=== PATIENT | female | born 1970 | race Caucasian/White ===

== ENCOUNTER → 2016-07-10 | Outpatient (CLI) | payer OTHER ==
--- NOTE | 2016-07-10 16:32 | REP ---
LEFT ANKLE, FIVE VIEWS: HISTORY: Pain. There is no acute fracture or dislocation. The joint space is normal in appearance. An ossified density is present superior to the navicular bone. This may represent ligamentous or tendon calcification. IMPRESSION:There is no acute fracture or dislocation.
== END ==
LOC: M CLY 15:16
PROVIDERS: ATTEND Physician Assistant
DX: M25.572 Pain in left ankle and joints of left foot (principal)
CPT/HCPCS: 73610; G0463

== ENCOUNTER → 2016-11-15 | Outpatient (REF) | payer OTHER ==
[2016-11-15 12:22] LABS: BASO % 0.5 % (0.0-1.0); EOS # 0.2 K/mm3 (0.0-0.50); EOS % 5.2 % (0.0-3.0); LARGE UNSTAINED CELL # 0.1 K/mm3 (0.0-0.4); LARGE UNSTAINED CELL % 2.7 % (0.0-4.0); LYMPH # 0.8 K/mm3 (1.5-4.5); LYMPH % 14.6 % (24.0-44.0); MEAN CORPUSCULAR HEMOGLOBIN 26.2 pg (27.0-33.0); MEAN CORPUSCULAR HGB CONC 31.8 g/dl (32.0-36.5); MEAN CORPUSCULAR VOLUME 82.4 fl (80.0-96.0); MONO # 0.4 K/mm3 (0.0-0.8); MONO % 8.2 % (0.0-5.0); NEUTROPHILS # 3.1 K/mm3 (1.8-7.7); NEUTROPHILS % 68.9 % (36.0-66.0); PLATELET COUNT, AUTOMATED 249 k/mm3 (150-450); RED CELL DISTRIBUTION WIDTH 16.6 % (11.5-14.5); WHITE BLOOD COUNT 4.4 K/mm3 (4.0-10.0)
[2016-11-15 12:58] LABS: ALBUMIN 3.5 GM/DL (3.2-5.2); ALBUMIN/GLOBULIN RATIO 1.03 (1.00-1.93); ALKALINE PHOSPHATASE 70 U/L (45-117); ALT/SGPT 21 U/L (12-78); ANION GAP 10 MEQ/L (8-16); AST/SGOT 13 U/L (15-37); BILIRUBIN,TOTAL 0.2 MG/DL (0.2-1.0); BLOOD UREA NITROGEN 20 MG/DL (7-18); CALCIUM LEVEL 8.5 MG/DL (8.5-10.1); CARBON DIOXIDE LEVEL 22 MEQ/L (21-32); CHLORIDE LEVEL 113 MEQ/L (98-107); CHOLESTEROL LEVEL 186 MG/DL (<200); CREATININE FOR GFR 0.92 MG/DL (0.55-1.02); FREE T4 1.19 NG/DL (0.76-1.46); GLOMERULAR FILTRATION RATE > 60.0 (>58); GLUCOSE, FASTING 92 MG/DL (70-105); SODIUM LEVEL 145 MEQ/L (136-145); TOTAL PROTEIN 6.9 GM/DL (6.4-8.2); TRIGLYCERIDES LEVEL 82 MG/DL (<150)
== END ==
LOC: M SFHCCLAY 07:10
PROVIDERS: ATTEND Physician Assistant
DX: E07.9 Disorder of thyroid, unspecified (principal)

== ENCOUNTER → 2016-11-21 | Outpatient (CLI) | payer OTHER ==
--- NOTE | 2016-11-21 15:58 | REP ---
LEFT KNEE SERIES: Five views of the left knee performed and demonstrate no fracture or dislocation. There is slight lateral patellofemoral joint space narrowing. No definite effusion is seen. Study otherwise appears unremarkable. IMPRESSION: There appears to be mild lateral patellofemoral compartment narrowing.
== END ==
LOC: M CLY 15:12
PROVIDERS: ATTEND Physician Assistant
DX: M22.8X2 Other disorders of patella, left knee (principal); M25.562 Pain in left knee
CPT/HCPCS: 73564; G0463

== ENCOUNTER → 2018-08-27 | Outpatient (REF) | payer OTHER ==
[2018-08-27 16:54] LABS: BASO % 0.6 % (0.0-1.0); EOS # 0.2 10^3/uL (0.0-0.50); EOS % 3.7 % (0.0-3.0); HEMATOCRIT 42.1 % (36.0-47.0); HEMOGLOBIN 13.7 g/dl (12.0-15.5); LYMPH # 1.5 10^3/uL (1.5-4.5); LYMPH % 24.8 % (24.0-44.0); MEAN CORPUSCULAR HEMOGLOBIN 29.6 pg (27.0-33.0); MEAN CORPUSCULAR HGB CONC 32.5 g/dl (32.0-36.5); MEAN CORPUSCULAR VOLUME 90.9 fl (80.0-96.0); MONO # 0.6 10^3/uL (0.0-0.8); MONO % 10.4 % (0.0-5.0); NEUTROPHILS # 3.7 10^3/uL (1.8-7.7); NEUTROPHILS % 60.3 % (36.0-66.0); PLATELET COUNT, AUTOMATED 255 10^3/uL (150-450); RED BLOOD COUNT 4.63 10^6/uL (4.00-5.40); WHITE BLOOD COUNT 6.2 10^3/uL (4.0-10.0)
[2018-08-27 18:23] LABS: ALBUMIN 3.5 GM/DL (3.2-5.2); ALT/SGPT 27 U/L (12-78); BILIRUBIN,TOTAL 0.3 MG/DL (0.2-1.0); BLOOD UREA NITROGEN 26 MG/DL (7-18); CALCIUM LEVEL 8.9 MG/DL (8.5-10.1); CARBON DIOXIDE LEVEL 25 MEQ/L (21-32); CHLORIDE LEVEL 110 MEQ/L (98-107); CHOLESTEROL LEVEL 214 MG/DL (<200); CHOLESTEROL RISK RATIO 2.098 (<5); CREATININE FOR GFR 0.93 MG/DL (0.55-1.30); FREE T4 1.04 NG/DL (0.76-1.46); GLOMERULAR FILTRATION RATE > 60.0 (>58); GLUCOSE, FASTING 91 MG/DL (70-100); HDL CHOLESTEROL 102 MG/DL (>40); LDL CHOLESTEROL 99 MG/DL (<100); NON-HDL-C 112 MG/DL; POTASSIUM SERUM 4.1 MEQ/L (3.5-5.1); SODIUM LEVEL 141 MEQ/L (136-145); TOTAL PROTEIN 7.4 GM/DL (6.4-8.2); TRIGLYCERIDES LEVEL 63 MG/DL (<150)
[2018-08-27 18:24] LABS: HEMOGLOBIN A1c 5.5 %
[2018-08-27 18:29] LABS: TOTAL 25(OH) VITAMIN D 39.4 NG/ML (30.0-100.0)
== END ==
LOC: M SFHCCLAY 09:53
PROVIDERS: ATTEND Physician Assistant
DX: R73.09 Other abnormal glucose (principal); E07.9 Disorder of thyroid, unspecified; M54.2 Cervicalgia; E55.9 Vitamin D deficiency, unspecified

== ENCOUNTER 2018-11-13 09:48 | Day surgery (SDC) | payer OTHER ==
[~2018-11-13] VITALS: Ht 160 cm; Wt 106.0 kg
[~2018-11-13 09:48] MED LIST: ACET-897 PO; BIOT2500 PO; ESTR1TAB PO; KP F1200 PO; LAMO200T2 PO; LORA-674 PO; LOTE0.5S OU; MAGN400C PO; METH1TAB40 PO; MONT10TA2 PO; NS 1,000 ML IV ONE; PAZE1DRO OU; RANI150T14 PO; REST0.05 OS; SUMA100T2 PO; TOPI100T9 PO; TRAM50TA2 PO; TRAZ-252 PO; VENTAER INH; VITA500C24 PO; VITA50TA43 PO; VITA50TA47 PO; VYVA70CA3 PO; [UNRECOGNIZED DRUG - CODE] PO
[2018-11-13] MEDS ORDERED: PROPOFOL 200 MG/20 ML VIAL As Ordered ONE ×3 (10:35→11:44)
[2018-11-13] MEDS ORDERED: LIDOCAINE 2% INJ 100 MG/5 ML SDV (FOR ANES.) As Ordered ONE (10:35)
[2018-11-13] MEDS ORDERED: fentaNYL 100 MCG/2 ML INJECTION (J3010) As Ordered ONE (10:35)
--- NOTE | 2018-11-13 12:05 | ROOR ---
Patient Name: Meagan Cottrell Procedure Date: 11/13/2018 11:12 AM Date of : 1970 Age: 48 Room: [facility] Gender: Female Note Status: Finalized Procedure: Upper GI endoscopy Indications: Heartburn, Suspected gastro-esophageal reflux disease Providers: Alexander Bro MD Referring MD: PEGGY Bain pa-c Requesting Provider: Medicines: Monitored Anesthesia Care Complications: No immediate complications. Procedure: Pre-Anesthesia Assessment: - Prior to the procedure, a History and Physical was performed, and patient medications and allergies were reviewed. The patient is competent. The risks and benefits of the procedure and the sedation options and risks were discussed with the patient. All questions were answered and informed consent was obtained. Patient identification and proposed procedure were verified by the physician, the nurse and the anesthesiologist in the procedure room. Mental Status Examination: alert and oriented. Airway Examination: normal oropharyngeal airway and neck mobility. Respiratory Examination: clear to auscultation. CV Examination: normal. Prophylactic Antibiotics: The patient does not require prophylactic antibiotics. Prior Anticoagulants: The patient has taken no previous anticoagulant or antiplatelet agents. ASA Grade Assessment: II - A patient with mild systemic disease. After reviewing the risks and benefits, the patient was deemed in satisfactory condition to undergo the procedure. The anesthesia plan was to use monitored anesthesia care (MAC). Immediately prior to administration of medications, the patient was re-assessed for adequacy to receive sedatives. The heart rate, respiratory rate, oxygen saturations, blood pressure, adequacy of pulmonary ventilation, and response to care were monitored throughout the procedure. The physical status of the patient was re-assessed after the procedure. The Endoscope was introduced through the mouth, and advanced to the second part of duodenum. The upper GI endoscopy was accomplished without difficulty. The patient tolerated the procedure well. Findings: Mucosal changes including ringed esophagus and longitudinal furrows were found in the lower third of the esophagus. Biopsies were obtained from the proximal and distal esophagus with cold forceps for histology of suspected eosinophilic esophagitis. Verification of patient identification for the specimen was done by the physician and nurse using the patient's name, date and medical record number. Estimated blood loss was minimal. The Z-line was regular and was found 38 cm from the incisors. The HILL capsule with delivery system was introduced through the mouth and advanced into the esophagus, such that the HILL pH capsule was positioned 32 cm from the incisors, which was 6 cm proximal to the GE junction. Suction was applied to the well of the HILL pH capsule to suck in the adjacent mucosa of the esophagus using the external vacuum pump set at a minimum vacuum pressure of 550 mmHg for 30 seconds. The HILL pH capsule was then deployed by depressing the plunger on top of the handle to advance the locking pin into the mucosa, thereby attaching the capsule to the esophagus. The plunger was then rotated a quarter turn clockwise to release the capsule from the delivery system. The delivery system was then withdrawn. Endoscopy was utilized for probe placement and diagnostic evaluation. The scope was reinserted to evaluate placement of the HILL capsule. Visualization showed the HILL capsule to be in an appropriate position. Scattered mild inflammation characterized by erythema and granularity was found in the gastric antrum. Biopsies were taken with a cold forceps for Helicobacter pylori testing. Scattered mild inflammation characterized by erythema and granularity was found in the duodenal bulb and in the second portion of the duodenum. Biopsies for histology were taken with a cold forceps for evaluation of celiac disease. Impression: - Esophageal mucosal changes suspicious for eosinophilic esophagitis. Biopsied. - Z-line regular, 38 cm from the incisors. - Gastritis. Biopsied. - Duodenitis. Biopsied. - The HILL pH capsule was positioned 32 cm from the incisors, which was 6 cm proximal to the GE junction. Recommendation: - Patient has a contact number available for emergencies. The signs and symptoms of potential delayed complications were discussed with the patient. Return to normal activities tomorrow. Written discharge instructions were provided to the patient. - Resume previous diet. - Continue present medications. - Await pathology results. - Follow an antireflux regimen. - Telephone GI clinic for pathology results in 2 weeks. - Return to primary care physician. Alexander Bro MD Alexander Bro MD 11/13/2018 12:05:03 PM Electronically signed by Alexander Bro MD Number of Addenda: 0 Note Initiated On: 11/13/2018 11:12 AM Estimated Blood Loss: Estimated blood loss was minimal.
--- NOTE | 2018-11-13 12:10 | ROOR ---
Patient Name: Meagan Cottrell Procedure Date: 11/13/2018 11:25 AM Date of : 1970 Age: 48 Room: [facility] Gender: Female Note Status: Finalized Procedure: Colonoscopy Indications: Screening for colorectal malignant neoplasm Providers: Alexander Bro MD Referring MD: PEGGY Bain pa-c Requesting Provider: Medicines: Monitored Anesthesia Care Complications: No immediate complications. Procedure: Pre-Anesthesia Assessment: - Prior to the procedure, a History and Physical was performed, and patient medications and allergies were reviewed. The patient is competent. The risks and benefits of the procedure and the sedation options and risks were discussed with the patient. All questions were answered and informed consent was obtained. Patient identification and proposed procedure were verified by the physician, the nurse and the anesthesiologist in the procedure room. Mental Status Examination: alert and oriented. Airway Examination: normal oropharyngeal airway and neck mobility. Respiratory Examination: clear to auscultation. CV Examination: normal. Prophylactic Antibiotics: The patient does not require prophylactic antibiotics. Prior Anticoagulants: The patient has taken no previous anticoagulant or antiplatelet agents. ASA Grade Assessment: II - A patient with mild systemic disease. After reviewing the risks and benefits, the patient was deemed in satisfactory condition to undergo the procedure. The anesthesia plan was to use monitored anesthesia care (MAC). Immediately prior to administration of medications, the patient was re-assessed for adequacy to receive sedatives. The heart rate, respiratory rate, oxygen saturations, blood pressure, adequacy of pulmonary ventilation, and response to care were monitored throughout the procedure. The physical status of the patient was re-assessed after the procedure. The Colonoscope was introduced through the anus and advanced to the terminal ileum, with identification of the appendiceal orifice and IC valve. The colonoscopy was performed without difficulty. The patient tolerated the procedure well. The quality of the bowel preparation was good. The terminal ileum, ileocecal valve, appendiceal orifice, and rectum were photographed. Scope insertion time was 4 minutes. Scope withdrawal time was 10 minutes. The total duration of the procedure was 14 minutes. Findings: The perianal and digital rectal examinations were normal. The terminal ileum appeared normal. A 15 mm polyp was found in the cecum. The polyp was sessile. The polyp was removed with a hot snare. Resection and retrieval were complete. To close a defect after polypectomy, two hemostatic clips were successfully placed. There was no bleeding at the end of the procedure. Verification of patient identification for the specimen was done by the physician and nurse using the patient's name, date and medical record number. Estimated blood loss was minimal. A 12 mm polyp was found in the ascending colon. The polyp was sessile. The polyp was removed with a hot snare. Resection and retrieval were complete. To close a defect after polypectomy, one hemostatic clip was successfully placed. There was no bleeding at the end of the procedure. A 10 mm polyp was found in the transverse colon. The polyp was sessile. The polyp was removed with a hot snare. Resection and retrieval were complete. External hemorrhoids were found during retroflexion. The hemorrhoids were small. Impression: - The examined portion of the ileum was normal. - One 15 mm polyp in the cecum, removed with a hot snare. Resected and retrieved. Clips were placed. - One 12 mm polyp in the ascending colon, removed with a hot snare. Resected and retrieved. Clip was placed. - One 10 mm polyp in the transverse colon, removed with a hot snare. Resected and retrieved. - External hemorrhoids. Recommendation: - Patient has a contact number available for emergencies. The signs and symptoms of potential delayed complications were discussed with the patient. Return to normal activities tomorrow. Written discharge instructions were provided to the patient. - Advance diet as tolerated. - Continue present medications. - Await pathology results. - Repeat colonoscopy in 3 years for surveillance based on pathology results. - Telephone GI clinic for pathology results in 2 weeks. - Return to primary care physician. Alexander Bro MD Alexander Bro MD 11/13/2018 12:10:01 PM Electronically signed by Alexander Bro MD Number of Addenda: 0 Note Initiated On: 11/13/2018 11:25 AM Estimated Blood Loss: Estimated blood loss was minimal.
[2018-11-13 12:36] VITALS: BP 131/82
== END 2018-11-13 12:54 | disposition home or self-care (01) ==
LOC: M OPP 09:48
PROVIDERS: ATTEND Internal Medicine Gastroenterology
DX: Z12.11 Encounter for screening for malignant neoplasm of colon (principal); D12.0 Benign neoplasm of cecum; D12.2 Benign neoplasm of ascending colon; D12.3 Benign neoplasm of transverse colon; K64.8 Other hemorrhoids; R12 Heartburn; K29.70 Gastritis, unspecified, without bleeding; K29.80 Duodenitis without bleeding; K22.8 Other specified diseases of esophagus; E05.90 Thyrotoxicosis, unspecified without thyrotoxic crisis or storm; K57.32 Diverticulitis of large intestine without perforation or abscess without bleeding; K58.9 Irritable bowel syndrome, unspecified; D64.9 Anemia, unspecified; M19.90 Unspecified osteoarthritis, unspecified site; M54.89 Other dorsalgia; L30.9 Dermatitis, unspecified; R42 Dizziness and giddiness; G43.909 Migraine, unspecified, not intractable, without status migrainosus; J45.909 Unspecified asthma, uncomplicated; N39.3 Stress incontinence (female) (male); M72.2 Plantar fascial fibromatosis; Z88.8 Allergy status to other drugs, medicaments and biological substances; Z79.899 Other long term (current) drug therapy
CPT/HCPCS: 43239; 45385; 88305; 91035; J3010

== ENCOUNTER → 2019-04-13 | Outpatient (REF) | payer OTHER ==
[~2019-04-13] MED LIST changes: -LAMO200T2 PO; +LAMO200T3 PO; -MONT10TA2 PO; +MONT10TA4 PO; -NS 1,000 ML IV ONE; +PERC5TAB12 PO
[2019-04-13 16:29] LABS: BASO % 0.5 % (0.0-1.0); EOS # 0.3 10^3/uL (0.0-0.5); EOS % 4.6 % (0.0-3.0); HEMATOCRIT 44.8 % (36.0-47.0); LYMPH # 1.5 10^3/uL (1.5-5.0); MEAN CORPUSCULAR HEMOGLOBIN 28.9 pg (27.0-33.0); MEAN CORPUSCULAR HGB CONC 31.3 g/dl (32.0-36.5); MEAN CORPUSCULAR VOLUME 92.6 fl (80.0-96.0); MONO # 0.5 10^3/uL (0.0-0.8); MONO % 8.4 % (0.0-5.0); NEUTROPHILS # 3.2 10^3/uL (1.5-8.5); NEUTROPHILS % 58.1 % (36.0-66.0); PLATELET COUNT, AUTOMATED 242 10^3/uL (150-450); RED BLOOD COUNT 4.84 10^6/uL (4.00-5.40); WHITE BLOOD COUNT 5.5 10^3/uL (4.0-10.0)
[2019-04-13 16:44] LABS: ALBUMIN 3.7 GM/DL (3.2-5.2); ALT/SGPT 26 U/L (12-78); BILIRUBIN,TOTAL 0.2 MG/DL (0.2-1.0); BLOOD UREA NITROGEN 26 MG/DL (7-18); CALCIUM LEVEL 8.8 MG/DL (8.5-10.1); CARBON DIOXIDE LEVEL 24 MEQ/L (21-32); CHLORIDE LEVEL 111 MEQ/L (98-107); CHOLESTEROL LEVEL 235 MG/DL (<200); CHOLESTEROL RISK RATIO 2.611 (<5); CREATININE FOR GFR 1.03 MG/DL (0.55-1.30); FREE T4 0.93 NG/DL (0.76-1.46); GLOMERULAR FILTRATION RATE > 60.0 (>51); GLUCOSE, FASTING 90 MG/DL (70-100); HDL CHOLESTEROL 90 MG/DL (>40); LDL CHOLESTEROL 124 MG/DL (<100); NON-HDL-C 145 MG/DL; POTASSIUM SERUM 4.1 MEQ/L (3.5-5.1); SODIUM LEVEL 141 MEQ/L (136-145); TOTAL PROTEIN 7.1 GM/DL (6.4-8.2); TRIGLYCERIDES LEVEL 104 MG/DL (<150)
[2019-04-13 17:04] LABS: TOTAL 25(OH) VITAMIN D 37.4 NG/ML (30.0-100.0)
[2019-04-13 17:14] LABS: HEMOGLOBIN A1c 5.5 %
== END ==
LOC: M SFHCCAPE 10:36
PROVIDERS: ATTEND Physician Assistant
DX: E07.9 Disorder of thyroid, unspecified (principal); R73.09 Other abnormal glucose; E55.9 Vitamin D deficiency, unspecified

== ENCOUNTER 2019-05-20 19:16 | Emergency (ER) | payer OTHER ==
[~2019-05-20] VITALS: Ht 160 cm; Wt 102.3 kg
[~2019-05-20 19:16] MED LIST changes: -PERC5TAB12 PO
[2019-05-20] MEDS ORDERED: traMADol 50 MG TAB PO ONE (21:00)
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
[2019-05-20] MEDS ORDERED: PERCOCET 5MG/325MG TAB PO ONE (22:00)
[2019-05-20] MEDS ORDERED: PERC5TAB12 PO (22:02)
[2019-05-20 22:09] VITALS: BP 138/72
== END 2019-05-20 22:26 | disposition home or self-care (01) ==
LOC: M ED 19:16
DX: S39.012A Strain of muscle, fascia and tendon of lower back, initial encounter (principal); S16.1XXA Strain of muscle, fascia and tendon at neck level, initial encounter; S20.219A Contusion of unspecified front wall of thorax, initial encounter; V43.52XA Car driver injured in collision with other type car in traffic accident, initial encounter; Y92.410 Unspecified street and highway as the place of occurrence of the external cause; G43.909 Migraine, unspecified, not intractable, without status migrainosus; R42 Dizziness and giddiness; Z88.8 Allergy status to other drugs, medicaments and biological substances; Z79.899 Other long term (current) drug therapy; Z79.890 Hormone replacement therapy

== ENCOUNTER 2019-10-12 15:00 | Emergency (ER) | payer OTHER ==
[~2019-10-12] VITALS: Ht 160 cm; Wt 108.9 kg
[~2019-10-12 15:00] MED LIST changes: +PERC5TAB12 PO
[2019-10-12 15:01] VITALS: BP 143/82
[2019-10-12] MEDS ORDERED: FAMO40TA3 PO (15:09)
[2019-10-12] MEDS ORDERED: BOOSTRIX/ADACEL VACCINE (DIPHTH/PERTUSS/ACELL/TETANUS) 0.5ML SYR IM ONE (15:30)
--- NOTE | 2019-10-13 07:27 | REP ---
LEFT HAND, FOUR VIEWS: There is no evidence of an acute fracture, dislocation, or intrinsic bone disease. IMPRESSION: No fracture or dislocation. Electronically Signed by Paco Salinas MD 10/14/2019 09:14 A
--- NOTE | 2019-10-13 07:27 | REP ---
LEFT WRIST, FOUR VIEWS: There is no evidence of an acute fracture, dislocation, or intrinsic bone disease. IMPRESSION: No fracture or dislocation. Electronically Signed by Paco Salinas MD 10/14/2019 09:13 A
== END 2019-10-12 16:02 | disposition home or self-care (01) ==
LOC: M ED 15:00
DX: S60.212A Contusion of left wrist, initial encounter (principal); S60.413A Abrasion of left middle finger, initial encounter; S60.222A Contusion of left hand, initial encounter; Z88.6 Allergy status to analgesic agent; W20.8XXA Other cause of strike by thrown, projected or falling object, initial encounter; Y93.E9 Activity, other interior property and clothing maintenance; Y99.8 Other external cause status; Y92.009 Unspecified place in unspecified non-institutional (private) residence as the place of occurrence of the external cause; E05.90 Thyrotoxicosis, unspecified without thyrotoxic crisis or storm; Z79.899 Other long term (current) drug therapy; J45.909 Unspecified asthma, uncomplicated

== ENCOUNTER → 2019-11-09 | Outpatient (REF) | payer OTHER ==
[~2019-11-09] MED LIST changes: +FAMO40TA3 PO
[2019-12-06 20:22] LABS: BASO % 0.4 % (0.0-1.0); EOS # 0.3 10^3/uL (0.0-0.5); EOS % 5.7 % (0.0-3.0); HEMATOCRIT 41.2 % (36.0-47.0); HEMOGLOBIN 13.3 g/dl (12.0-15.5); LYMPH # 1.6 10^3/uL (1.5-5.0); LYMPH % 32.1 % (24.0-44.0); MEAN CORPUSCULAR HEMOGLOBIN 29.2 pg (27.0-33.0); MEAN CORPUSCULAR HGB CONC 32.3 g/dl (32.0-36.5); MEAN CORPUSCULAR VOLUME 90.4 fl (80.0-96.0); MONO # 0.4 10^3/uL (0.0-0.8); NEUTROPHILS # 2.6 10^3/uL (1.5-8.5); NEUTROPHILS % 52.4 % (36.0-66.0); PLATELET COUNT, AUTOMATED 226 10^3/uL (150-450); RED BLOOD COUNT 4.56 10^6/uL (4.00-5.40); WHITE BLOOD COUNT 4.9 10^3/uL (4.0-10.0)
[2019-12-24 13:03] LABS: HEMOGLOBIN A1c 5.4 %
[2019-12-24 13:09] LABS: ALT/SGPT 41 U/L (12-78); BILIRUBIN,TOTAL 0.4 MG/DL (0.2-1.0); BLOOD UREA NITROGEN 22 MG/DL (7-18); CALCIUM LEVEL 8.9 MG/DL (8.5-10.1); CARBON DIOXIDE LEVEL 26 MEQ/L (21-32); CHLORIDE LEVEL 109 MEQ/L (98-107); CHOLESTEROL LEVEL 218 MG/DL (<200); CHOLESTEROL RISK RATIO 2.534 (<5); CREATININE FOR GFR 0.95 MG/DL (0.55-1.30); FREE T4 1.04 NG/DL (0.76-1.46); GLOMERULAR FILTRATION RATE > 60.0 (>51); GLUCOSE, FASTING 95 MG/DL (70-100); HDL CHOLESTEROL 86 MG/DL (>40); LDL CHOLESTEROL 113 MG/DL (<100); NON-HDL-C 132 MG/DL; POTASSIUM SERUM 3.9 MEQ/L (3.5-5.1); SODIUM LEVEL 139 MEQ/L (136-145); TOTAL 25(OH) VITAMIN D 51.6 NG/ML (30.0-100.0); TOTAL PROTEIN 7.1 GM/DL (6.4-8.2); TRIGLYCERIDES LEVEL 93 MG/DL (<150); VITAMIN B12 LEVEL 452 PG/ML (247-911)
== END ==
LOC: M SFHCCLAY 12:59
PROVIDERS: ATTEND Physician Assistant
DX: E55.9 Vitamin D deficiency, unspecified (principal); E07.89 Other specified disorders of thyroid; K21.9 Gastro-esophageal reflux disease without esophagitis

== ENCOUNTER → 2020-05-12 | Outpatient (CLI) | payer OTHER ==
[~2020-05-12] MED LIST changes: +METH-1164 PO; -METH1TAB40 PO; +MONT10TA10 PO; -MONT10TA4 PO
--- NOTE | 2020-05-12 15:46 | REP ---
INDICATION: PAIN IN LEGS R/O DVT. COMPARISON: None. TECHNIQUE: Bilateral lower extremity duplex venous ultrasound. FINDINGS: The deep veins are anechoic and fully compressible from the groin to the popliteal fossa in the left and right lower extremity. Color flow imaging is homogeneous. Spectral Doppler interrogation demonstrates intact respiratory variation in flow and normal manual augmentation of flow. There is no evidence of deep vein thrombosis. IMPRESSION: Negative bilateral lower extremity duplex venous ultrasound. No evidence of deep vein thrombosis. <Electronically signed by Velasquez Gomez > 05/12/20 [id number]
== END ==
LOC: M RAD 14:21
PROVIDERS: ATTEND Physician Assistant Surgical
DX: M79.605 Pain in left leg (principal); M79.604 Pain in right leg

== ENCOUNTER → 2020-05-23 | Outpatient (CLI) | payer OTHER ==
--- NOTE | 2020-05-23 16:59 | REP ---
INDICATION: R92.8 ABN RIGHT BREAST MAMMO/CK CLIP PLACEMENT. COMPARISON: None. TECHNIQUE: The procedure was performed under the general supervision of Dr. Gomez. The risks and benefits of the procedure were explained to the patient and informed consent was obtained. A craniocaudal approach was utilized. The nodule was localized using stereotactic mammographic guidance. 1% Xylocaine was used as a local anesthetic. An 10 gauge, suction assisted Mammotome needle was inserted and 6 core biopsy samples were obtained. Specimen radiograph demonstrates the presence of calcifications to be within the specimen. A marker clip (HydroMARK shape 1) was placed at the biopsy site. The patient tolerated the procedure well and there were no immediate complications. After the appropriate amount of monitored convalescence, the patient was discharged from the department. FINDINGS: None IMPRESSION: Stereotactic right breast biopsy with marker clip placement (HydroMARK shape 1). <Electronically signed by Donis Ruiz > 05/23/20 [id number] <Electronically signed by Velasquez Gomez > 05/23/20 [id number]
[2020-05-23 17:26] VITALS: BP 152/76
--- NOTE | 2020-05-24 08:54 | REP ---
INDICATION: R92.8 ABN RIGHT BREAST MAMMO/CK CLIP PLACEMENT. Marker clip placement views. COMPARISON: Comparison mammography 06 April 2020 and 03 May 2020. TECHNIQUE: Craniocaudal and mediolateral views of the right breast are obtained. FINDINGS: Craniocaudal and mediolateral views of the right breast demonstrate the marker clip in good position at the site where prior mammography showed the nodular opacity. The nodular opacity is not well seen on post biopsy images. IMPRESSION: Marker clip in good position. <Electronically signed by Velasquez Gomez > 05/23/20 [id number]
== END ==
LOC: M WHCPRO 14:00
PROVIDERS: ATTEND Surgery
DX: N60.01 Solitary cyst of right breast (principal); R92.8 Other abnormal and inconclusive findings on diagnostic imaging of breast

== ENCOUNTER → 2020-09-06 | Outpatient (REF) | payer OTHER ==
[2020-09-06 11:40] LABS: BASO % 0.6 % (0.0-1.0); EOS # 0.3 10^3/uL (0.0-0.5); EOS % 4.8 % (0.0-3.0); HEMATOCRIT 42.3 % (36.0-47.0); HEMOGLOBIN 13.5 g/dl (12.0-15.5); LYMPH # 1.4 10^3/uL (1.5-5.0); LYMPH % 26.5 % (24.0-44.0); MEAN CORPUSCULAR HEMOGLOBIN 28.6 pg (27.0-33.0); MEAN CORPUSCULAR HGB CONC 31.9 g/dl (32.0-36.5); MEAN CORPUSCULAR VOLUME 89.6 fl (80.0-96.0); MONO # 0.6 10^3/uL (0.0-0.8); MONO % 10.7 % (2.0-8.0); PLATELET COUNT, AUTOMATED 267 10^3/uL (150-450); RED BLOOD COUNT 4.72 10^6/uL (4.00-5.40); WHITE BLOOD COUNT 5.3 10^3/uL (4.0-10.0)
[2020-09-06 12:14] LABS: HEMOGLOBIN A1c 5.3 %
[2020-09-06 12:26] LABS: ALT/SGPT 31 U/L (12-78); BILIRUBIN,TOTAL 0.3 MG/DL (0.2-1.0); BLOOD UREA NITROGEN 24 MG/DL (7-18); CALCIUM LEVEL 9.4 MG/DL (8.5-10.1); CARBON DIOXIDE LEVEL 25 MEQ/L (21-32); CHLORIDE LEVEL 108 MEQ/L (98-107); CHOLESTEROL LEVEL 230 MG/DL (<200); CHOLESTEROL RISK RATIO 2.346 (<5); FREE T4 1.16 NG/DL (0.76-1.46); GLOMERULAR FILTRATION RATE > 60.0 (>51); GLUCOSE, FASTING 92 MG/DL (70-100); HDL CHOLESTEROL 98 MG/DL (>40); LDL CHOLESTEROL 121 MG/DL (<100); NON-HDL-C 132 MG/DL; SODIUM LEVEL 140 MEQ/L (136-145); TOTAL PROTEIN 7.3 GM/DL (6.4-8.2); TRIGLYCERIDES LEVEL 57 MG/DL (<150)
[2020-09-06 13:24] LABS: TOTAL 25(OH) VITAMIN D 51.3 NG/ML (30.0-100.0)
== END ==
LOC: M SFHCCLAY 09:47
PROVIDERS: ATTEND Physician Assistant
DX: R73.09 Other abnormal glucose (principal); E07.9 Disorder of thyroid, unspecified; E55.9 Vitamin D deficiency, unspecified

== ENCOUNTER → 2020-11-20 | Outpatient (CLI) | payer OTHER ==
--- NOTE | 2020-11-20 15:10 | REP ---
INDICATION: R92.8 6 MO BIOPSY F/U RT BREAST. KNOWN BENIGN RESULT COMPARISON: Multiple TECHNIQUE: Digital CC and MLO views of the right breast were obtained using 2D and 3D modalities and compared to prior exams. FINDINGS: The biopsy clip is unchanged in position. There are no new abnormalities. IMPRESSION: BIRADS/ACR category 1 negative mammogram. Known benign biopsy. The patient letter being requested is M1. RECOMMENDATION: Repeat screening mammography recommended 1 year (for women over 40). <Electronically signed by Romeo Pardo > 11/20/20 [id number]
--- NOTE | 2020-11-21 09:23 | REP ---
INDICATION: Follow-up stereotactic biopsy COMPARISON: No pertinent priors for comparison TECHNIQUE: Ultrasonography of the right breast at the 1 o'clock position FINDINGS: There is a surgical biopsy clip seen as an echogenic focus at 1 o'clock. No abnormalities are noted. IMPRESSION: ACR category 2 benign findings <Electronically signed by Romeo Pardo > 11/21/20 [id number]
== END ==
LOC: M WHC 13:54
PROVIDERS: ATTEND Surgery
DX: R92.8 Other abnormal and inconclusive findings on diagnostic imaging of breast (principal)
CPT/HCPCS: 76642; 77065; G0279

== ENCOUNTER → 2021-05-08 | Outpatient (REF) | payer OTHER ==
[~2021-05-08] MED LIST changes: -MONT10TA10 PO; +MONT10TA97 PO
== END ==
LOC: M LABDRAWC 11:10
PROVIDERS: ATTEND Internal Medicine Gastroenterology
DX: Z86.010 Personal history of colon polyps (principal); R13.10 Dysphagia, unspecified; K44.9 Diaphragmatic hernia without obstruction or gangrene; K21.9 Gastro-esophageal reflux disease without esophagitis; K22.2 Esophageal obstruction

== ENCOUNTER → 2021-05-08 | Outpatient (REF) | payer OTHER | LOC: M SFHCCLAY 08:43 | PROVIDERS: ATTEND Physician Assistant | DX: E07.9 Disorder of thyroid, unspecified (principal); R73.09 Other abnormal glucose; E55.9 Vitamin D deficiency, unspecified ==

== ENCOUNTER → 2021-11-12 | Outpatient (REF) | payer OTHER ==
[2021-11-12 11:38] LABS: BASO # 0.1 10^3/uL (0.0-0.2); BASO % 0.9 % (0.0-1.0); EOS # 0.5 10^3/uL (0.0-0.5); EOS % 7.4 % (0.0-3.0); HEMATOCRIT 37.3 % (36.0-47.0); HEMOGLOBIN 11.3 g/dl (12.0-15.5); LYMPH # 1.7 10^3/uL (1.5-5.0); LYMPH % 25.4 % (24.0-44.0); MEAN CORPUSCULAR HEMOGLOBIN 22.9 pg (27.0-33.0); MEAN CORPUSCULAR HGB CONC 30.3 g/dl (32.0-36.5); MEAN CORPUSCULAR VOLUME 75.7 fl (80.0-96.0); MONO # 0.6 10^3/uL (0.0-0.8); NEUTROPHILS # 3.7 10^3/uL (1.5-8.5); NEUTROPHILS % 57.1 % (36.0-66.0); PLATELET COUNT, AUTOMATED 349 10^3/uL (150-450); RED BLOOD COUNT 4.93 10^6/uL (4.00-5.40); WHITE BLOOD COUNT 6.5 10^3/uL (4.0-10.0)
[2021-11-12 12:19] LABS: HEMOGLOBIN A1c 5.8 %
[2021-11-12 12:54] LABS: ALBUMIN 3.9 GM/DL (3.2-5.2); ALT/SGPT 28 U/L (12-78); BILIRUBIN,TOTAL 0.3 MG/DL (0.2-1.0); BLOOD UREA NITROGEN 23 MG/DL (7-18); CALCIUM LEVEL 9.3 MG/DL (8.5-10.1); CARBON DIOXIDE LEVEL 27 MEQ/L (21-32); CHLORIDE LEVEL 105 MEQ/L (98-107); CHOLESTEROL LEVEL 230 MG/DL (<200); CHOLESTEROL RISK RATIO 2.346 (<5); CREATININE FOR GFR 0.97 MG/DL (0.55-1.30); FERRITIN 5 NG/ML (8-252); GLOMERULAR FILTRATION RATE > 60.0 (>51); GLUCOSE, FASTING 94 MG/DL (70-100); HDL CHOLESTEROL 98 MG/DL (>40); IRON (FE) 31 UG/DL (50-170); LDL CHOLESTEROL 120 MG/DL (<100); NON-HDL-C 132 MG/DL; POTASSIUM SERUM 4.2 MEQ/L (3.5-5.1); SODIUM LEVEL 139 MEQ/L (136-145); TOTAL IRON BINDING CAPACITY 444 UG/DL (250-450); TOTAL PROTEIN 7.5 GM/DL (6.4-8.2); TRIGLYCERIDES LEVEL 62 MG/DL (<150)
== END ==
LOC: M SFHCCLAY 09:31
PROVIDERS: ATTEND Physician Assistant
DX: R73.09 Other abnormal glucose (principal); E07.9 Disorder of thyroid, unspecified; D64.9 Anemia, unspecified

== ENCOUNTER → 2022-01-23 | Outpatient (CLI) | payer OTHER | LOC: M CLY 14:32 | PROVIDERS: ATTEND Nurse Practitioner Family | DX: S59.912A Unspecified injury of left forearm, initial encounter (principal); W18.30XA Fall on same level, unspecified, initial encounter; Y92.009 Unspecified place in unspecified non-institutional (private) residence as the place of occurrence of the external cause ==

== ENCOUNTER → 2022-02-04 | Outpatient (REF) | payer OTHER ==
[2022-02-04 12:18] LABS: BASO % 0.3 % (0.0-1.0); EOS # 0.4 10^3/uL (0.0-0.5); EOS % 4.6 % (0.0-3.0); HEMATOCRIT 37.5 % (36.0-47.0); LYMPH # 1.7 10^3/uL (1.5-5.0); LYMPH % 18.7 % (24.0-44.0); MEAN CORPUSCULAR HGB CONC 29.3 g/dl (32.0-36.5); MEAN CORPUSCULAR VOLUME 78.3 fl (80.0-96.0); MONO # 0.7 10^3/uL (0.0-0.8); NEUTROPHILS % 67.6 % (36.0-66.0); PLATELET COUNT, AUTOMATED 438 10^3/uL (150-450); RED BLOOD COUNT 4.79 10^6/uL (4.00-5.40); WHITE BLOOD COUNT 8.9 10^3/uL (4.0-10.0)
[2022-02-04 13:03] LABS: ALBUMIN 3.6 GM/DL (3.2-5.2); BILIRUBIN,TOTAL 0.3 MG/DL (0.2-1.0); CALCIUM LEVEL 9.5 MG/DL (8.5-10.1); CREATININE FOR GFR 1.09 MG/DL (0.55-1.30); FREE T4 1.4 NG/DL (0.76-1.46); GLOMERULAR FILTRATION RATE 55.9 (>51); POTASSIUM SERUM 4.4 MEQ/L (3.5-5.1); THYROID STIMULATING HORMONE 1.34 uIU/ML (0.358-3.740); TOTAL PROTEIN 7.5 GM/DL (6.4-8.2)
== END ==
LOC: M SFHCCLAY 09:00
PROVIDERS: ATTEND Physician Assistant
DX: D50.9 Iron deficiency anemia, unspecified (principal)

== ENCOUNTER → 2022-05-13 | Outpatient (REF) | payer OTHER ==
[2022-05-13 17:38] LABS: BASO # 0.1 10^3/uL (0.0-0.2); BASO % 0.7 % (0.0-1.0); EOS # 0.4 10^3/uL (0.0-0.5); EOS % 5.7 % (0.0-3.0); HEMATOCRIT 40.4 % (36.0-47.0); HEMOGLOBIN 12.5 g/dl (12.0-15.5); LYMPH # 1.9 10^3/uL (1.5-5.0); MEAN CORPUSCULAR HEMOGLOBIN 25.9 pg (27.0-33.0); MEAN CORPUSCULAR HGB CONC 30.9 g/dl (32.0-36.5); MEAN CORPUSCULAR VOLUME 83.6 fl (80.0-96.0); MONO # 0.5 10^3/uL (0.0-0.8); MONO % 7.5 % (2.0-8.0); NEUTROPHILS # 4.3 10^3/uL (1.5-8.5); NEUTROPHILS % 59.8 % (36.0-66.0); PLATELET COUNT, AUTOMATED 298 10^3/uL (150-450); RED BLOOD COUNT 4.83 10^6/uL (4.00-5.40); WHITE BLOOD COUNT 7.2 10^3/uL (4.0-10.0)
[2022-05-13 17:40] LABS: PERCENT SATURATION 26.4 % (13.2-45.0)
[2022-05-13 17:42] LABS: FERRITIN 8.4 NG/ML (7.3-270.7)
== END ==
LOC: M SFHCCLAY 10:23
PROVIDERS: ATTEND Physician Assistant
DX: D50.9 Iron deficiency anemia, unspecified (principal)

== ENCOUNTER → 2022-10-02 | Outpatient (REF) | payer OTHER ==
[2022-10-02 18:35] LABS: BASO % 0.7 % (0.0-1.0); EOS # 0.3 10^3/uL (0.0-0.5); EOS % 6.8 % (0.0-3.0); HEMATOCRIT 39.2 % (36.0-47.0); HEMOGLOBIN 12.3 g/dl (12.0-15.5); LYMPH # 1.4 10^3/uL (1.5-5.0); LYMPH % 33.3 % (24.0-44.0); MEAN CORPUSCULAR HEMOGLOBIN 26.5 pg (27.0-33.0); MEAN CORPUSCULAR HGB CONC 31.4 g/dl (32.0-36.5); MEAN CORPUSCULAR VOLUME 84.3 fl (80.0-96.0); MONO # 0.4 10^3/uL (0.0-0.8); MONO % 9.2 % (2.0-8.0); NEUTROPHILS # 2.1 10^3/uL (1.5-8.5); NEUTROPHILS % 49.8 % (36.0-66.0); PLATELET COUNT, AUTOMATED 296 10^3/uL (150-450); RED BLOOD COUNT 4.65 10^6/uL (4.00-5.40); WHITE BLOOD COUNT 4.1 10^3/uL (4.0-10.0)
[2022-10-02 18:43] LABS: BILIRUBIN,TOTAL 0.2 MG/DL (0.3-1.2); CALCIUM LEVEL 10.2 MG/DL (8.5-10.1); CHOLESTEROL RISK RATIO 2.95 (<5); CREATININE FOR GFR 1.03 MG/DL (0.55-1.30); GLOMERULAR FILTRATION RATE 59.7 (>51); LDL CHOLESTEROL 119.4 MG/DL (<100); MAGNESIUM LEVEL 2.2 MG/DL (1.8-2.4); POTASSIUM SERUM 3.9 MMOL/L (3.5-5.1); TOTAL 25(OH) VITAMIN D 72.4 NG/ML (20.0-100.0); TOTAL PROTEIN 7.1 G/DL (5.7-8.2)
[2022-10-02 18:44] LABS: THYROID STIMULATING HORMONE 1.883 uIU/ML (0.55-4.78)
[2022-10-02 18:45] LABS: FREE T4 1.22 NG/DL (0.89-1.76)
[2022-10-02 19:44] LABS: HEMOGLOBIN A1c 5.5 % (4.0-6.0)
== END ==
LOC: M SFHCCLAY 11:56
PROVIDERS: ATTEND Nurse Practitioner Family
DX: D50.9 Iron deficiency anemia, unspecified (principal); E07.9 Disorder of thyroid, unspecified; R73.09 Other abnormal glucose; E55.9 Vitamin D deficiency, unspecified; R73.03 Prediabetes; G25.81 Restless legs syndrome

== ENCOUNTER → 2023-03-05 | Outpatient (CLI) | payer OTHER ==
[~2023-03-05] MED LIST changes: +LORA-1041 PO; -LORA-674 PO
== END ==
LOC: M CLY 11:47
PROVIDERS: ATTEND Nurse Practitioner Family
DX: S69.92XA Unspecified injury of left wrist, hand and finger(s), initial encounter (principal); W18.30XA Fall on same level, unspecified, initial encounter; Y92.009 Unspecified place in unspecified non-institutional (private) residence as the place of occurrence of the external cause

== ENCOUNTER → 2023-08-27 | Outpatient (REF) | payer OTHER ==
[2023-08-27 16:59] LABS: EOS # 0.4 10^3/uL (0.0-0.5); EOS % 9.8 % (0.0-3.0); HEMATOCRIT 35.5 % (36.0-47.0); HEMOGLOBIN 11.1 g/dl (12.0-15.5); LYMPH # 1.3 10^3/uL (1.5-5.0); LYMPH % 32.8 % (24.0-44.0); MEAN CORPUSCULAR HEMOGLOBIN 25.9 pg (27.0-33.0); MEAN CORPUSCULAR HGB CONC 31.3 g/dl (32.0-36.5); MEAN CORPUSCULAR VOLUME 82.9 fl (80.0-96.0); MONO # 0.4 10^3/uL (0.0-0.8); MONO % 10.3 % (2.0-8.0); NEUTROPHILS # 1.9 10^3/uL (1.5-8.5); NEUTROPHILS % 46.1 % (36.0-66.0); PLATELET COUNT, AUTOMATED 302 10^3/uL (150-450); RED BLOOD COUNT 4.28 10^6/uL (4.00-5.40); WHITE BLOOD COUNT 4.1 10^3/uL (4.0-10.0)
[2023-08-27 17:43] LABS: HEMOGLOBIN A1c 5.5 % (4.0-6.0)
[2023-08-27 17:48] LABS: PERCENT SATURATION 5.4 % (13.2-45.0)
[2023-08-27 17:49] LABS: ALBUMIN 3.7 G/DL (3.2-5.2); BILIRUBIN,TOTAL 0.2 MG/DL (0.3-1.2); CALCIUM LEVEL 9.1 MG/DL (8.5-10.1); CHOLESTEROL RISK RATIO 2.75 (<5); CREATININE FOR GFR 1.06 MG/DL (0.55-1.30); GLOMERULAR FILTRATION RATE 57.5 (>51); HDL CHOLESTEROL 83.1 MG/DL (>40); LDL CHOLESTEROL 128.1 MG/DL (<100); NON-HDL-C 145.9 MG/DL; POTASSIUM SERUM 4.3 MMOL/L (3.5-5.1); THYROID STIMULATING HORMONE 3.275 uIU/ML (0.55-4.78); TOTAL PROTEIN 6.8 G/DL (5.7-8.2)
[2023-08-27 17:50] LABS: FERRITIN 3.5 NG/ML (7.3-270.7); FREE T4 1.2 NG/DL (0.89-1.76)
== END ==
LOC: M SFHCCLAY 09:51
PROVIDERS: ATTEND Nurse Practitioner Family
DX: R73.03 Prediabetes (principal); D50.9 Iron deficiency anemia, unspecified; K58.9 Irritable bowel syndrome, unspecified; E07.9 Disorder of thyroid, unspecified

== ENCOUNTER 2023-09-18 08:33 | Outpatient (CLI) | payer OTHER ==
[~2023-09-18] VITALS: Ht 160 cm; Wt 114.0 kg
[2023-09-18 08:45] VITALS: BP 158/78; O2SAT 100
[2023-09-18] MEDS: IRON SUCROSE 25 MG in NS 23.75 ML IV ONE (09:23)
[2023-09-18] MEDS: IRON SUCROSE 475 MG in NS 250 ML IV ONE (10:09)
[2023-09-18 11:00] VITALS: BP 160/75; O2SAT 100
[2023-09-18 12:00] VITALS: BP 150/75; O2SAT 100
[2023-09-18 13:00] VITALS: BP 149/76; O2SAT 100
== END 2023-09-18 10:00 ==
LOC: M INFU 08:33
PROVIDERS: ATTEND Nurse Practitioner Family
DX: D50.9 Iron deficiency anemia, unspecified (principal); Z88.8 Allergy status to other drugs, medicaments and biological substances
CPT/HCPCS: 96365; 96366; J1756

== ENCOUNTER → 2023-10-01 | Outpatient (REF) | payer OTHER ==
[2023-10-01 19:18] LABS: BASO % 0.8 % (0.0-1.0); EOS # 0.3 10^3/uL (0.0-0.5); EOS % 5.7 % (0.0-3.0); HEMOGLOBIN 13.4 g/dl (12.0-15.5); LYMPH # 1.5 10^3/uL (1.5-5.0); LYMPH % 28.6 % (24.0-44.0); MEAN CORPUSCULAR HEMOGLOBIN 26.3 pg (27.0-33.0); MEAN CORPUSCULAR HGB CONC 31.2 g/dl (32.0-36.5); MEAN CORPUSCULAR VOLUME 84.5 fl (80.0-96.0); MONO # 0.6 10^3/uL (0.0-0.8); MONO % 11.7 % (2.0-8.0); NEUTROPHILS # 2.8 10^3/uL (1.5-8.5); NEUTROPHILS % 52.8 % (36.0-66.0); PLATELET COUNT, AUTOMATED 310 10^3/uL (150-450); RED BLOOD COUNT 5.09 10^6/uL (4.00-5.40); WHITE BLOOD COUNT 5.3 10^3/uL (4.0-10.0)
[2023-10-01 19:38] LABS: MAGNESIUM LEVEL 1.9 MG/DL (1.8-2.4)
[2023-10-01 19:40] LABS: PERCENT SATURATION 22.1 % (13.2-45.0)
[2023-10-01 19:42] LABS: FERRITIN 103.7 NG/ML (7.3-270.7)
== END ==
LOC: M SFHCCLAY 13:41
PROVIDERS: ATTEND Nurse Practitioner Family
DX: D50.9 Iron deficiency anemia, unspecified (principal)

== ENCOUNTER 2023-10-22 08:30 | Outpatient (CLI) | payer OTHER ==
[~2023-10-22] VITALS: Ht 160 cm; Wt 113.6 kg
[2023-10-22 08:30] VITALS: BP 140/87; O2SAT 98
[~2023-10-22 08:30] MED LIST changes: +IRON SUCROSE 25 MG in NS 23.75 ML IV ONE; +IRON SUCROSE 475 MG in NS 250 ML IV ONE
[2023-10-22] MEDS: IRON SUCROSE 500 MG in NS 250 ML IV ONE (09:06)
[2023-10-22 10:00] VITALS: BP 150/67; O2SAT 97
[2023-10-22 11:00] VITALS: BP 118/57; O2SAT 98
[2023-10-22 12:00] VITALS: BP 120/64; O2SAT 100
[2023-10-22 13:30] VITALS: BP 167/91; O2SAT 98
== END 2023-10-22 13:30 ==
LOC: M INFU 08:30
PROVIDERS: ATTEND Nurse Practitioner Family
DX: D50.9 Iron deficiency anemia, unspecified (principal); Z88.6 Allergy status to analgesic agent
CPT/HCPCS: 96365; 96366; J1756

== ENCOUNTER → 2023-11-26 | Outpatient (REF) | payer OTHER ==
[~2023-11-26] MED LIST changes: -IRON SUCROSE 25 MG in NS 23.75 ML IV ONE; -IRON SUCROSE 475 MG in NS 250 ML IV ONE
[2023-11-26 17:45] LABS: PERCENT SATURATION 19.6 % (13.2-45.0)
[2023-11-26 17:46] LABS: FERRITIN 85.5 NG/ML (7.3-270.7)
[2023-11-26 17:48] LABS: BASO % 0.8 % (0.0-1.0); EOS # 0.3 10^3/uL (0.0-0.5); EOS % 7.1 % (0.0-3.0); HEMATOCRIT 43.3 % (36.0-47.0); HEMOGLOBIN 13.8 g/dl (12.0-15.5); LYMPH # 1.6 10^3/uL (1.5-5.0); LYMPH % 32.6 % (24.0-44.0); MEAN CORPUSCULAR HEMOGLOBIN 27.3 pg (27.0-33.0); MEAN CORPUSCULAR HGB CONC 31.9 g/dl (32.0-36.5); MEAN CORPUSCULAR VOLUME 85.7 fl (80.0-96.0); MONO # 0.4 10^3/uL (0.0-0.8); MONO % 8.3 % (2.0-8.0); NEUTROPHILS # 2.5 10^3/uL (1.5-8.5); PLATELET COUNT, AUTOMATED 264 10^3/uL (150-450); RED BLOOD COUNT 5.05 10^6/uL (4.00-5.40); WHITE BLOOD COUNT 4.8 10^3/uL (4.0-10.0)
== END ==
LOC: M SFHCCLAY 09:57
PROVIDERS: ATTEND Nurse Practitioner Family
DX: D50.9 Iron deficiency anemia, unspecified (principal)

== ENCOUNTER → 2023-11-26 | Outpatient (CLI) | payer OTHER | LOC: M CLY 10:25 | PROVIDERS: ATTEND Nurse Practitioner Family | DX: M25.561 Pain in right knee (principal) ==

== ENCOUNTER → 2024-01-14 | Outpatient (REF) | payer OTHER ==
[2024-01-14 18:24] LABS: BILIRUBIN,TOTAL 0.4 MG/DL (0.3-1.2); CALCIUM LEVEL 9.6 MG/DL (8.5-10.1); CHOLESTEROL RISK RATIO 2.96 (<5); CREATININE FOR GFR 1.04 MG/DL (0.55-1.30); GLOMERULAR FILTRATION RATE 58.6 (>51); HDL CHOLESTEROL 75.5 MG/DL (>40); LDL CHOLESTEROL 121.3 MG/DL (<100); NON-HDL-C 148.5 MG/DL; PERCENT SATURATION 23.4 % (13.2-45.0); POTASSIUM SERUM 3.9 MMOL/L (3.5-5.1); TOTAL PROTEIN 7.1 G/DL (5.7-8.2)
[2024-01-14 18:25] LABS: THYROID STIMULATING HORMONE 3.026 uIU/ML (0.55-4.78)
[2024-01-14 18:26] LABS: FERRITIN 66.3 NG/ML (7.3-270.7); FREE T4 1.44 NG/DL (0.89-1.76)
[2024-01-14 18:34] LABS: BASO % 0.7 % (0.0-1.0); EOS # 0.4 10^3/uL (0.0-0.5); HEMATOCRIT 42.4 % (36.0-47.0); HEMOGLOBIN 13.7 g/dl (12.0-15.5); LYMPH # 1.6 10^3/uL (1.5-5.0); LYMPH % 28.7 % (24.0-44.0); MEAN CORPUSCULAR HEMOGLOBIN 28.5 pg (27.0-33.0); MEAN CORPUSCULAR HGB CONC 32.3 g/dl (32.0-36.5); MEAN CORPUSCULAR VOLUME 88.1 fl (80.0-96.0); MONO # 0.5 10^3/uL (0.0-0.8); MONO % 8.9 % (2.0-8.0); NEUTROPHILS # 2.9 10^3/uL (1.5-8.5); NEUTROPHILS % 53.3 % (36.0-66.0); PLATELET COUNT, AUTOMATED 270 10^3/uL (150-450); RED BLOOD COUNT 4.81 10^6/uL (4.00-5.40); WHITE BLOOD COUNT 5.4 10^3/uL (4.0-10.0)
[2024-01-14 18:40] LABS: HEMOGLOBIN A1c 5.5 % (4.0-6.0)
== END ==
LOC: M SFHCCLAY 09:49
PROVIDERS: ATTEND Nurse Practitioner Family
DX: R73.03 Prediabetes (principal); D50.9 Iron deficiency anemia, unspecified; K58.9 Irritable bowel syndrome, unspecified; E07.9 Disorder of thyroid, unspecified; F41.1 Generalized anxiety disorder; G25.81 Restless legs syndrome; G43.909 Migraine, unspecified, not intractable, without status migrainosus; J45.909 Unspecified asthma, uncomplicated

== ENCOUNTER → 2024-02-12 | Outpatient (REF) | payer OTHER ==
[2024-02-13 13:32] LABS: BVAB 2 POSITIVE (NEGATIVE)
[2024-02-13 13:47] LABS: CANDIDA ALBICANS NAA NOT DETECTED (NOT DETECTED); CANDIDA GLABRATA NAA NOT DETECTED (NOT DETECTED); CHLAMYDIA TRACHOMATIS NAA NOT DETECTED (NOT DETECTED); Neisseria gonorrhoeae NAA NOT DETECTED (NOT DETECTED); TRICH VAG BY NAA NOT DETECTED (NOT DETECTED)
== END ==
LOC: M SFHCCLAY 11:32
PROVIDERS: ATTEND Physician Assistant
DX: N89.8 Other specified noninflammatory disorders of vagina (principal)

== ENCOUNTER → 2024-05-28 | Outpatient (REF) | payer OTHER ==
[2024-05-28 17:37] LABS: BASO % 0.5 % (0.0-1.0); EOS # 0.3 10^3/uL (0.0-0.5); HEMATOCRIT 41.4 % (36.0-47.0); HEMOGLOBIN 13.6 g/dl (12.0-15.5); LYMPH # 1.2 10^3/uL (1.5-5.0); LYMPH % 28.3 % (24.0-44.0); MEAN CORPUSCULAR HEMOGLOBIN 29.6 pg (27.0-33.0); MEAN CORPUSCULAR HGB CONC 32.9 g/dl (32.0-36.5); MONO # 0.4 10^3/uL (0.0-0.8); NEUTROPHILS # 2.4 10^3/uL (1.5-8.5); PLATELET COUNT, AUTOMATED 267 10^3/uL (150-450); WHITE BLOOD COUNT 4.2 10^3/uL (4.0-10.0)
[2024-05-28 17:42] LABS: THYROID STIMULATING HORMONE 2.058 uIU/ML (0.55-4.78)
[2024-05-28 17:43] LABS: IRON (FE) 74 UG/DL (50-170); PERCENT SATURATION 25.2 % (13.2-45.0); TOTAL IRON BINDING CAPACITY 294 UG/DL (250-425)
[2024-05-28 17:44] LABS: ALBUMIN 3.8 G/DL (3.2-5.2); ALKALINE PHOSPHATASE 62 U/L (35-104); ALT/SGPT 21 U/L (7.0-40); AST/SGOT 10 U/L (<34); BILIRUBIN,TOTAL 0.2 MG/DL (0.3-1.2); BLOOD UREA NITROGEN 21 MG/DL (9-23); CALCIUM LEVEL 9.7 MG/DL (8.5-10.1); CARBON DIOXIDE LEVEL 23 MMOL/L (20-31); CHLORIDE LEVEL 111 MMOL/L (98-107); CREATININE FOR GFR 0.99 MG/DL (0.55-1.30); FERRITIN 49.4 NG/ML (7.3-270.7); GLOMERULAR FILTRATION RATE > 60.0 (>51); GLUCOSE, FASTING 102 MG/DL (60-100); SODIUM LEVEL 144 MMOL/L (136-145); TOTAL PROTEIN 6.9 G/DL (5.7-8.2)
[2024-05-28 17:45] LABS: FREE T4 1.35 NG/DL (0.89-1.76)
[2024-05-28 17:52] LABS: HEMOGLOBIN A1c 5.4 % (4.0-6.0)
== END ==
LOC: M SFHCCLAY 13:20
PROVIDERS: ATTEND Nurse Practitioner Family
DX: R73.03 Prediabetes (principal); D50.9 Iron deficiency anemia, unspecified; E07.9 Disorder of thyroid, unspecified

== ENCOUNTER → 2024-12-16 | Outpatient (REF) | payer OTHER ==
[~2024-12-16] MED LIST changes: +TOPI-257 PO; -TOPI100T9 PO
[2024-12-16 18:59] LABS: BASO # 0.1 10^3/uL (0.0-0.2); BASO % 1.0 % (0.0-1.0); EOS # 0.7 10^3/uL (0.0-0.5); EOS % 11.0 % (0.0-3.0); LYMPH # 0.5 10^3/uL (1.5-5.0); LYMPH % 7.5 % (24.0-44.0); MONO # 0.5 10^3/uL (0.0-0.8); MONO % 7.9 % (2.0-8.0); NEUTROPHILS # 4.6 10^3/uL (1.5-8.5); NEUTROPHILS % 72.3 % (36.0-66.0); PLATELET COUNT, AUTOMATED 246 10^3/uL (150-450)
[2024-12-16 19:12] LABS: ALT/SGPT 23.0 U/L (7.0-40); AST/SGOT 14.0 U/L (<34); CALCIUM LEVEL 9.4 MG/DL (8.5-10.1); CARBON DIOXIDE LEVEL 22.0 MMOL/L (20-31); CHLORIDE LEVEL 107.0 MMOL/L (98-107); CREATININE FOR GFR 1.04 MG/DL (0.55-1.30); GLOMERULAR FILTRATION RATE 63.1 (>51); IRON (FE) 38.0 UG/DL (50-170); POTASSIUM SERUM 4.3 MMOL/L (3.5-5.1); SODIUM LEVEL 140.0 MMOL/L (136-145)
== END ==
LOC: M LABDRAWC 17:26
PROVIDERS: ATTEND Psychiatry & Neurology Neurology
DX: D50.9 Iron deficiency anemia, unspecified (principal); G43.909 Migraine, unspecified, not intractable, without status migrainosus

== ENCOUNTER → 2025-02-16 | Outpatient (REF) | payer OTHER ==
[2025-02-21 05:23] LABS: HPV VAGINAL Not Detected (NOT DETECT)
== END ==
LOC: M SFHCCLAY 11:07
PROVIDERS: ATTEND Nurse Practitioner Family
DX: Z12.4 Encounter for screening for malignant neoplasm of cervix (principal)
CPT/HCPCS: 87624; G0123